=== PATIENT | female | born 1995 | race African-American/Black ===

== ENCOUNTER 2019-03-05 12:44 | Emergency (ER) | payer MEDICAID ==
[~2019-03-05] VITALS: Ht 149.9 cm; Wt 83.9 kg
[2019-03-05 13:00] VITALS: BP 151/102
[2019-03-05] MEDS ORDERED: ACETAMINOPHEN 500 MG TAB PO ONE (14:45)
== END 2019-03-05 15:27 | disposition home or self-care (01) ==
LOC: ER 12:44 → EDBD 12:44 → ER 15:26
DX: S16.1XXA Strain of muscle, fascia and tendon at neck level, initial encounter (principal); S00.83XA Contusion of other part of head, initial encounter; V49.59XA Passenger injured in collision with other motor vehicles in traffic accident, initial encounter; Y93.89 Activity, other specified; Y99.8 Other external cause status; Y92.488 Other paved roadways as the place of occurrence of the external cause